=== PATIENT | female | born 1940 | race Caucasian/White ===

== ENCOUNTER → 2017-04-15 | Outpatient (CLI) | payer OTHER ==
[~2017-04-15] VITALS: Ht 154.9 cm; Wt 63.5 kg
[~2017-04-15] MED LIST: ALLOPURINOL 30300 M1 PO; CARAFATE 1 GM TA1 G1 PO; COLACE 100 MG100 MG PO; COZAAR100 MG PO; DIOVAN HCT 1601 EACH PO; FLEXERIL PO; GLUCOPHAGE500 MG PO; LIPITOR 20 MG T20 M1 PO; MEDROL DOSPAK21 TA1 PO; MOBIC15 MG PO; NORCO 5-325 TA1 EACH PO; OXYBUTYNIN 5 MG5 M1 PO; OXYCODONE-ACET1 EACH PO; PERCOCET 5-3251 EACH PO; PROTONIX40 M1 PO; SINGULAIR 10 MG10 M1 PO; SKELAXIN 800 M800 M1 PO; TRAZODONE 150150 M1 PO; VALIUM5 MG PO; XANAX 0.5 MG0.5 M1 PO; ZOFRAN 4 MG ORAL4 M1 DIS
--- NOTE | ~2017-04-15 | HPC ---
[facility] [address] [place] [address] PAIN MANAGEMENT CONSULTATION Name: ALAN ROHITDENA Room #: REG DONALDO Tenzin.#: [id number] Admission: 04/15/17 Attend Phys: Kwadwo Pretty DO Discharge: Date of : 39 Report #: [id number] THIS REPORT FOR: //name// CC: Leonela Pretty The patient is a very pleasant 76-year-old female, she was prior seen in the pain clinic some 5 years ago for lumbar radicular pain. She returns to the pain clinic today with exacerbation of pain, low back, buttock, right hip to the toes. She denies saddle anesthesia. Denies bowel or bladder continence changes. She does, however, have weakness and paresthesia in the right foot. She notes back pain recurred about a year and a half ago. She prior had a fusion at L4-L5 in 2009. Fusion was for low back and right leg pain. She had good relief. Again, pain recurred a year and a half ago. She did have a fall last January, which did exacerbate pain somewhat, but it was already becoming problematic. She has done pool water aerobics 3 times a week for year, recently started more organized physical therapy as well. Takes rare hydrocodone. Had a Medrol Dosepak with transient relief of symptoms. Notes pain is exacerbated with lifting or pulling, some relief with heat. Describes steady, shooting, aching, tender pain that she rates a 5-10 on a VAS. REVIEW OF SYSTEMS: Complete review of systems attached to chart and gone over with the patient. She is , does not smoke, drink alcohol to excess. History of asthma for which she takes Singulair. Hypertension, treated with Cozaar. Dyslipidemia for which she takes Lipitor. Has some bladder spasms for which she takes oxybutynin. Carafate, Protonix for rather profound gastroesophageal reflux and trazodone for insomnia. PAST SURGICAL HISTORY: Reviewed and notes the prior fusion L4-L5 in 2009. Pain impact score averages about 34/70. PHYSICAL EXAMINATION: This is a 5 feet 140 pound female, BMI is 26.5 kilograms per meter squared. Blood pressure is 149/59, pulse 65, respirations 16. Cranial nerves 2-12 are grossly intact. Pupils equal and react to light and accommodation. Extraocular muscles are intact. Thyroid is unremarkable. Heart is regular and rhythmical without murmur. Lungs clear to auscultation. Upper extremity strength is preserved. Rises from chair using armrest. Has a markedly antalgic gait. Nominally ataxic. Lumbar flexion is limited to 50 degrees. Tender in the low back SI area. No discrete trigger points noted. She is hyperreflexic throughout upper and lower extremities, 3/5. Left leg is perhaps even 4+/5. She does have pain with right leg extension and positive straight leg raise on the right. DIAGNOSTIC STUDIES: There are no recent diagnostic studies available for evaluation at this time. [address] [address] PAIN MANAGEMENT CONSULTATION Name: DENA APPIAH Room #: KIRSTEN Romo#: [id number] Admission: 04/15/17 Attend Phys: Kwadwo Pretty DO Discharge: Date of : 39 Report #: [id number] ASSESSMENT: Symptomatic lumbar radiculopathy by clinical exam and history. Concern for cervical stenosis with hyperreflexia. RECOMMENDATION: 1. MRI of the cervical spine. 2. MRI with and without contrast of the lumbar spine. 3. Epidural injection under fluoroscopy at L5-S1. 4. Follow up in 3 weeks for reevaluation. ASSESSMENT: Symptomatic lumbar radiculopathy status post decompressive laminectomy. PROCEDURE: Lumbar epidural injection under fluoroscopy. PROCEDURE: Lumbar epidural steroid injection. PROCEDURE NOTE: After both written and informed consent to include risk of spinal cord damage, increased pain, weakness and dural puncture, the patient was taken to the fluoroscopy suite, placed in the prone position. After sterile prep and drape, a skin wheal with lidocaine was raised. A 22-gauge epidural Tuohy needle was inserted in the midline at L4-L5 with good loss to resistance. Negative aspiration for cerebrospinal fluid or blood was noted. Then 1 mL of Omnipaque under biplanar fluoroscopy showed good spread within the epidural space. This was followed with 80 mg of triamcinolone plus 1 mL of 1.5% preservative-free Xylocaine, 0.5 mL Xylocaine was then injected to flush the needle; it was removed. The patient was monitored for an appropriate period of time and discharged in good and stable condition. <ELECTRONICALLY SIGNED> By: Kwadwo Pretty DO 04/17/17 1417 [id number] Kwadwo Pretty DO /nt
[2017-04-15 09:05] VITALS: BP 149/59
== END | disposition home or self-care (01) ==
LOC: PAIN 06:51
DX: M54.16 Radiculopathy, lumbar region (principal); M48.02 Spinal stenosis, cervical region; J45.909 Unspecified asthma, uncomplicated; Z79.899 Other long term (current) drug therapy; I10 Essential (primary) hypertension; E78.5 Hyperlipidemia, unspecified; K21.9 Gastro-esophageal reflux disease without esophagitis

== ENCOUNTER → 2017-04-22 | Outpatient (CLI) | payer OTHER ==
[2017-04-22 13:51] LABS: CREATININE 1.1 mg/dL (0.6-1.0)
== END ==
LOC: MRI 11:35
PROVIDERS: Family Medicine
DX: M50.21 Other cervical disc displacement, high cervical region (principal); M50.221 Other cervical disc displacement at C4-C5 level; M47.892 Other spondylosis, cervical region; M25.80 Other specified joint disorders, unspecified joint; M54.16 Radiculopathy, lumbar region; M51.27 Other intervertebral disc displacement, lumbosacral region; M47.896 Other spondylosis, lumbar region; Z98.890 Other specified postprocedural states; Z91.81 History of falling

== ENCOUNTER → 2017-05-02 | Outpatient (CLI) | payer OTHER ==
[~2017-05-02] VITALS: Ht 154.9 cm; Wt 66.7 kg
--- NOTE | ~2017-05-02 | HPC ---
[facility] [place] [address] [place] [address] PAIN MANAGEMENT CONSULTATION Name: DENA BEE Room #: REG DONALDO Demetrius#: [id number] Admission: 05/02/17 Attend Phys: Kwadwo Pretty DO Discharge: Date of : 39 Report #: [id number] THIS REPORT FOR: //name// CC: Leonela Pretty DATE OF SERVICE: 05/02/2017 HISTORY OF PRESENT ILLNESS: The patient is a very pleasant 76-year-old female. She was prior seen on 04/15/2017 as a relatively new consult, having prior been seen some 5 years earlier. She presented with ongoing lumbar radicular pain, status post L4-L5 fusion in 2009. The pain was in right L4 radicular pattern. The patient had a single L5-S1 midline epidural injection. She returns to the pain clinic today noting that that injection afforded some 80% relief, though she still has some pain in the right leg, primarily when going up and down stairs. She rates her pain as a 2 on a VAS, but notes the pain does interfere with function. Physical exam shows BMI of 27.8 kilograms per meter squared. Blood pressure 162/78, pulse 63, respirations are 18. She has not fallen in the last 3 months. She is hypertensive. Medicine list was reconciled. She scores low in the opiate risk assessment tool; however, functional impact score notes 45/70, impact secondary to pain. Physical exam does show a moderately antalgic gait, positive straight leg raise on the right at 30 degrees with slight decreased right hip flexion and plantar flexion strength. Lumbar flexion is modestly limited. Symptomatic lumbar radiculopathy status post decompressive laminectomy, incremental improvement following 1 epidural injection, but pain continues to be problematic interfering with function. The patient did have some hyperreflexia at last visit, which was concerning, I did order MRI of the cervical and lumbar spine. MRI of the cervical spine does note C3-C4 to have a slight flattening of the thecal sac. She continues to be hyperreflexic with +2 biceps, triceps, brachioradialis, but patella is perhaps 3 and Achilles is +2, all bilateral. The lumbar MRI does note the prior fusion and laminectomy at L4-L5. Does have a neural foraminal narrowing in multiple levels, right greater than left at L1-L2, bilateral L2-L3, L3-L4 and severe neural foraminal stenosis. This appears to be the primary culprit. There is also a component of L4 radicular pain. ASSESSMENT: Symptomatic lumbar radiculopathy by clinical exam and history. [address] [address] PAIN MANAGEMENT CONSULTATION Name: DENA BEE Room #: REG DONALDO Romo#: [id number] Admission: 05/02/17 Attend Phys: Kwadwo Pretty DO Discharge: Date of : 39 Report #: [id number] RECOMMENDATIONS: 1. We will seek authorization for epidural injection under fluoroscopy, repeat. 2. We will refer back to Dr. Rolly Sanders for evaluation of hyperreflexia and modest cervical stenosis. 3. The patient continues with water therapy 3 times a week. Unable to take anti-inflammatory medications secondary to gastroesophageal reflux. Again, an 80% relief following the prior injection. We will seek authorization for epidural injection #2 midline L5-S1. <ELECTRONICALLY SIGNED> By: Kwadwo Pretty DO 05/06/17 0747 [id number] Kwadwo Pretty DO /nt
[2017-05-02 13:20] VITALS: BP 162/78
== END ==
LOC: PAIN 04-29 14:49
DX: M54.16 Radiculopathy, lumbar region (principal)

== ENCOUNTER → 2017-05-09 | Outpatient (CLI) | payer OTHER ==
[~2017-05-09] VITALS: Ht 154.9 cm; Wt 66.2 kg
--- NOTE | ~2017-05-09 | HPC ---
[facility] [address] [place] [place] [address] PAIN MANAGEMENT CONSULTATION Name: DENA BEE Room #: REG DONALDO Dave.#: [id number] Admission: 05/09/17 Attend Phys: Kwadwo Pretty DO Discharge: Date of : 39 Report #: [id number] THIS REPORT FOR: //name// CC: Leonela Pretty DATE OF SERVICE: 05/09/2017 The patient is a very pleasant 76-year-old female, last seen in pain clinic on 05/02/2017. We sought authorization for epidural injection under fluoroscopy. She has symptomatic lumbar radiculopathy secondary to spinal stenosis. She had 60% relief following prior injection. She wished to proceed with epidural injection as discussed at her last visit. She has ongoing pain, back, bilateral legs, posterior to the foot with classic L5 radicular pain pattern, right greater than left leg. PROCEDURE #1: Lumbar epidural injection under fluoroscopy. PROCEDURE NOTE: After both written and informed consent to include risk of spinal cord damage, increased pain, weakness and dural puncture, the patient was taken to the fluoroscopy suite, placed in the prone position. After sterile prep and drape, a skin wheal with lidocaine was raised. A 22-gauge epidural Tuohy needle was inserted in the midline at L5-S1 with good loss to resistance. Negative aspiration for cerebrospinal fluid or blood was noted. Then 1 mL of Omnipaque under biplanar fluoroscopy showed good spread within the epidural space. This was followed with 80 mg of triamcinolone plus 1 mL of 1.5% preservative-free Xylocaine, 0.5 mL Xylocaine was then injected to flush the needle; it was removed. The patient was monitored for an appropriate period of time and discharged in good and stable condition. ASSESSMENT: Lumbar radiculopathy secondary to spinal stenosis in a patient status post lumbar decompressive laminectomy with fusion. <ELECTRONICALLY SIGNED> By: Kwadwo Pretty DO 05/10/17 0727 [id number] Kwadwo Pretty DO /nt
[2017-05-09 14:18] VITALS: BP 161/70
== END ==
LOC: PAIN 07:36
DX: M54.16 Radiculopathy, lumbar region (principal); M96.1 Postlaminectomy syndrome, not elsewhere classified